=== PATIENT | female | born 1930 | race Caucasian/White ===

== ENCOUNTER 2017-02-28 11:29 | Emergency (ER) | payer OTHER ==
[2017-02-28 11:51] VITALS: RESP 16; TEMP 97.9
--- NOTE | 2017-02-28 12:21 | EDPHY ---
H & P Stated Complaint: rectal area feels "wrong",? BM Itchy Time Seen by Provider: 02/28/17 11:38 HPI/ROS: CHIEF COMPLAINT: Pain in the bottom HISTORY OF PRESENT ILLNESS: This is an 86-year-old female with history of Alzheimer's who presents with her daughter. Patient was noticed to have decreased activity over the last 2 days, with a decreased appetite last night. No vomiting. She told her daughter today that there was burning when she urinated and she told me that she has pain in her bottom. No documented fever. No nausea or vomiting although the patient did not eat well last night. Patient denies any chest pain or shortness of breath to me. She denies any diarrhea. She denies any injury. Her daughter notes that today, when she went to visit her mother, patient was still in bed and did not want to participate in activities at the care facility. No history of fall. REVIEW OF SYSTEMS: Review of systems is unobtainable from this patient because of patient's history of Alzheimer's. Pertinent negatives as above from both the patient as well as the daughter. PAST MEDICAL HISTORY: Alzheimer's dementia. SOCIAL HISTORY: Retired, lives in a care facility. Ambulatory without a walker or supportive devices. VITAL SIGNS Reviewed by me. GENERAL: Elderly female, alert, answers my questions readily. Appears in no distress. Reports that she has pain on her bottom. HEENT: Atraumatic. Eyes: No icterus, no injection. Mouth: Slightly dry mucous membranes. No erythema or lesions. Neck: supple with no adenopathy. LUNGS: Clear to auscultation bilaterally, no wheezes, rhonchi or rales. CARDIAC: Regular rate and rhythm, no rubs, murmurs or gallops. ABDOMEN: Soft, nontender, nondistended, bowel sounds normal. BACK: No CVA tenderness. Erythema is present over the lower sacral area, with no skin breakdown. RECTAL: No hemorrhoids visualized. Perineum grossly normal. EXTREMITIES: No trauma. No edema. Range of motion is normal throughout. NEURO: Alert, able to answer simple questions, grossly nonfocal. SKIN: Warm and dry, no rash. PSYCHIATRIC: No agitation. - Personal History Current Tetanus/Diphtheria Vaccine: Unsure Current Tetanus Diphtheria and Acellular Pertussis (TDAP): Unsure Tetanus Vaccine Date: within 10 years - Medical/Surgical History Hx Asthma: No Hx Chronic Respiratory Disease: No Hx Diabetes: No Hx Cardiac Disease: No Hx Renal Disease: No Hx Cirrhosis: No Hx Alcoholism: No Hx HIV/AIDS: No Hx Splenectomy or Spleen Trauma: No Other PMH: Alzheimers ; htn;. ortho right leg pin - Social History Smoking Status: Never smoked Constitutional: Initial Vital Signs Temperature (C) 36.6 C 02/28/17 11:35 Heart Rate 60 02/28/17 11:35 Respiratory Rate 16 02/28/17 11:35 Blood Pressure 107/61 02/28/17 11:35 O2 Sat (%) 94 02/28/17 11:35 O2 Delivery Mode Room Air Allergies/Adverse Reactions: No Known Allergies Allergy (Verified 02/28/17 11:53) Home Medications: Medication Instructions Recorded Donepezil HCl 12/11/14 Losartan Potassium 04/21/16 Vitamin B6 04/21/16 Cephalexin [Keflex (RX)] 500 mg PO TID 7 Days 02/28/17 Medical Decision Making ED Course/Re-evaluation: Cath urine was ordered. Nurses attempted to obtain a cath urine but there was no urine in the bladder. Patient had IV placed and received a L of normal saline. CBC and chemistries are unremarkable. Cath urine was then obtained. Results are consistent with a urinary tract infection. I discussed this with the patient's daughter. Will place the patient on Keflex 500 mg by mouth 3 times a day. I have also asked the staff at the patient's care facility to keep an eye on the area of erythema on her lower sacrum and upper buttocks to ensure that she is not developing a bedsore. Differential Diagnosis: Differential diagnosis of the patient's complaint was considered including but not limited to urinary tract infection, sacral decubitus, hemorrhoids, rectal bleeding, anal fissures, vaginitis, vaginal discharge. - Data Points Laboratory Results: Laboratory Results 02/28/17 12:49 02/28/17 12:49 02/28/17 02/28/17 02/28/17 14:14 12:49 12:49 WBC 6.18 10^3/uL 10^3/uL (3.80-9.50) RBC 4.32 10^6/uL 10^6/uL (4.18-5.33) Hgb 12.2 g/dL L g/dL (12.6-16.3) Hct 37.8 % L % (38.0-47.0) MCV 87.5 fL fL (81.5-99.8) MCH 28.2 pg pg (27.9-34.1) MCHC 32.3 g/dL L g/dL (32.4-36.7) RDW 13.2 % % (11.5-15.2) Plt Count 212 10^3/uL 10^3/uL (150-400) MPV 9.9 fL fL (8.7-11.7) Neut % (Auto) 58.6 % % (39.3-74.2) Lymph % (Auto) 28.5 % % (15.0-45.0) [place] % (Auto) 9.2 % % (4.5-13.0) Eos % (Auto) 2.8 % % (0.6-7.6) Baso % (Auto) 0.6 % % (0.3-1.7) Nucleat RBC Rel Count 0.0 % % (0.0-0.2) Absolute Neuts (auto) 3.62 10^3/uL 10^3/uL (1.70-6.50) Absolute Lymphs (auto) 1.76 10^3/uL 10^3/uL (1.00-3.00) Absolute Monos (auto) 0.57 10^3/uL 10^3/uL (0.30-0.80) Absolute Eos (auto) 0.17 10^3/uL 10^3/uL (0.03-0.40) Absolute Basos (auto) 0.04 10^3/uL 10^3/uL (0.02-0.10) Absolute Nucleated RBC 0.00 10^3/uL 10^3/uL (0-0.01) Immature Gran % 0.3 % % (0.0-1.1) Immature Gran # 0.02 10^3/uL 10^3/uL (0.00-0.10) Sodium 140 mEq/L mEq/L (134-144) Potassium 4.8 mEq/L mEq/L (3.5-5.2) Chloride 102 mEq/L mEq/L (97-110) Carbon Dioxide 29 mEq/l mEq/l (22-31) Anion Gap 9 mEq/L mEq/L (8-16) BUN 22 mg/dL mg/dL (7-23) Creatinine 0.9 mg/dL mg/dL (0.6-1.0) Estimated GFR 59 Glucose 71 mg/dL mg/dL (70-100) Calcium 8.9 mg/dL mg/dL (8.5-10.4) Total Bilirubin 0.4 mg/dL mg/dL (0.1-1.4) Conjugated Bilirubin 0.1 mg/dL mg/dL (0.0-0.5) Unconjugated Bilirubin 0.3 mg/dL mg/dL (0.0-1.1) AST 21 IU/L IU/L (14-46) ALT 21 IU/L IU/L (9-52) Alkaline Phosphatase 76 IU/L IU/L (38-126) Total Protein 6.5 g/dL g/dL (6.3-8.2) Albumin 3.4 g/dL L g/dL (3.5-5.0) Lipase 174.0 IU/L IU/L (23-300) Urine Color YELLOW Urine Appearance HAZY Urine pH 7.0 (5.0-7.5) Ur Specific [place] 1.015 (1.002-1.030) Urine Protein NEGATIVE (NEGATIVE) Urine Ketones TRACE H (NEGATIVE) Urine Blood TRACE H (NEGATIVE) Urine Nitrate POSITIVE H (NEGATIVE) Urine Bilirubin NEGATIVE (NEGATIVE) Urine Urobilinogen 0.2 EU EU (0.2-1.0) Ur Leukocyte Esterase TRACE H (NEGATIVE) Urine RBC 5-10 /hpf H /hpf (0-3) Urine WBC 25-50 /hpf H /hpf (0-3) Ur Epithelial Cells TRACE /lpf /lpf (NONE-1+) Sodium Urate Crystals PRESENT /hpf /hpf (NONE-1+) Urine Bacteria 3+ /hpf H /hpf (NONE SEEN) Urine Mucus 1+ /lpf /lpf (NONE-1+) Urine Glucose NEGATIVE (NEGATIVE) Medications Given: Discontinued Medications Sodium Chloride (Ns) 1,000 mls @ 0 mls/hr IV ONCE ONE PRN Reason: Wide Open Stop: 02/28/17 12:37 Last Admin: 02/28/17 13:00 Dose: 1,000 mls Sodium Chloride (Ns) 1,000 mls @ 0 mls/hr IV ONCE ONE PRN Reason: Wide Open Stop: 02/28/17 12:41 Last Admin: 02/28/17 14:27 Dose: Not Given Departure - Departure Disposition: Home, Routine, Self-Care Clinical Impression: Urinary tract infection Qualifiers: Urinary tract infection type: site unspecified Hematuria presence: without hematuria Qualified Code(s): N39.0 - Urinary tract infection, site not specified Condition: Good Instructions: Urinary Traction Infection in Older Adults (ED) Additional Instructions: Please take antibiotic as directed. Keflex 500 mg by mouth 3 times a day for 7 days. Please encourage plenty of fluids and plenty of rest. There is a area of redness on the lower sacrum. Please ask the staff at patient 's care facility to make sure she is up and ambulatory when possible and to make sure she does not develop a bed sore in that area. Follow up with her primary care physician next week if you continue to have any concerns regarding her fatigue and lack of appetite. Be seen urgently if she develops a fever, vomiting, diarrhea, continues to complain of pain, blood in the stools, or other concerns. Referrals: Daisy Calvo MD [Primary Care Provider] - As per Instructions Prescriptions: Cephalexin [Keflex (RX)] 500 mg PO TID 7 Days
[2017-02-28] MEDS ORDERED: NS 1,000 ML IV ONE ×2 (12:36→12:40)
[2017-02-28 12:52] LABS: % IMMATURE GRANULYOCYTES 0.3 % (0.0-1.1); ABSOLUTE IMMATURE GRANULOCYTES 0.02 10^3/uL (0.00-0.10); ADD DIFF? NO; ADD MORPH? NO; ADD SCAN? NO; ATYPICAL LYMPHOCYTE FLAG 20 (0-99); FRAGMENT RBC FLAG 0 (0-99); HEMATOCRIT 37.8 % (38.0-47.0); HEMOGLOBIN 12.2 g/dL (12.6-16.3); LEFT SHIFT FLG 0 (0-99); LIPEMIA HEMOLYSIS FLAG 80 (0-99); MEAN CELL HEMOGLOBIN 28.2 pg (27.9-34.1); MEAN CELL HEMOGLOBIN CONCENTR. 32.3 g/dL (32.4-36.7); MEAN CELL VOLUME 87.5 fL (81.5-99.8); MEAN PLATELET VOLUME 9.9 fL (8.7-11.7); PLATELET CLUMPS FLAG 0 (0-99); PLATELET COUNT 212 10^3/uL (150-400); RED BLOOD CELL COUNT 4.32 10^6/uL (4.18-5.33); RED CELL DISTRIBUTION WIDTH 13.2 % (11.5-15.2)
[2017-02-28 13:14] LABS: ALBUMIN 3.4 g/dL (3.5-5.0); BILIRUBIN,TOTAL 0.4 mg/dL (0.1-1.4); BILIRUBIN-CONJUGATED 0.1 mg/dL (0.0-0.5); BILIRUBIN-UNCONJUGATED 0.3 mg/dL (0.0-1.1); CALCIUM 8.9 mg/dL (8.5-10.4); CREATININE 0.9 mg/dL (0.6-1.0); POTASSIUM 4.8 mEq/L (3.5-5.2); TOTAL PROTEIN 6.5 g/dL (6.3-8.2)
[2017-02-28 14:19] LABS: COLOR YELLOW; LEUKOCYTE ESTERASE,URINE TRACE (NEGATIVE); NITRITE,URINE POSITIVE (NEGATIVE)
[2017-02-28 14:28] LABS: BACTERIA 3+ /hpf (NONE SEEN); MUCUS 1+ /lpf (NONE-1+)
[2017-02-28 14:30] LABS: SODIUM URATE CRYSTAL PRESENT /hpf (NONE-1+); WBC,URINE 25-50 /hpf (0-3)
[2017-02-28 14:46] VITALS: BP 129/69; PULSE 65; O2SAT 96
== END 2017-02-28 14:50 | disposition home or self-care (01) ==
LOC: CED 11:29
DX: N39.0 Urinary tract infection, site not specified (principal); B96.20 Unspecified Escherichia coli [E. coli] as the cause of diseases classified elsewhere; G30.9 Alzheimer's disease, unspecified; I10 Essential (primary) hypertension
CPT/HCPCS: 80048-PO; 80076-PO; 81003-PO; 81015-PO; 83690-PO; 85025-PO

== ENCOUNTER 2017-05-07 16:25 | Emergency (ER) | payer OTHER ==
[2017-05-07 16:49] VITALS: TEMP 97.9; O2SAT 94
--- NOTE | 2017-05-07 16:52 | EDPHY ---
H & P Time Seen by Provider: 05/07/17 16:31 HPI/ROS: This patient complains of left leg pain. She is accompanied by her daughter. The patient has a history of Alzheimer's in this in an Alzheimer's Care unit facility though she still pretty high functioning at this point. As recently as Saturday, 2 days prior to arrival the patient was walking normally. However when the daughter visit her today she is holding on to chairs to ambulate complaining of her left leg pain. The staff at the facility where she lives mention that she has had about 2 days of leg pain the been giving her Tylenol partial relief. She had a dose of Tylenol 975 mg 3:00 p.m. again with partial relief. ROS: No fevers or chills. No other constitutional symptoms HEENT: No complaints Pulmonary: No pleuritic pain or shortness of breath Musculoskeletal: Patient's daughter reports that during some activities today the patient reached for her back but she now denies any back pain or hip pain. Cardiovascular: No chest pain or lightheadedness. No lower extremity swelling GI: No complaints Integumentary: No skin changes to the affected leg 7 point ROS is otherwise negative Past Medical/Surgical History: No prior history of DVTs or PEs. No family history of DVT or PE Social History: No recent immobilization Smoking Status: Never smoked Physical Exam: Physical Exam Vital signs are normal. General: Pleasant elderly female No acute distress HEENT: Atraumatic. Eyes: Pupils equal and react to light. Extraocular motions are intact. Lungs: No respiratory distress. Cardiac: Brisk capillary refill is intact throughout. Pulses are 2+ and symmetric in the affected extremity. Skin: No rash or pallor. Extremities: Atraumatic normal except for left leg Left leg: Patient has mild lateral tenderness to the leg. Minimal posterior tenderness. Homans is negative. She is neurovascularly intact in the affected extremity. No knee tenderness, or hip tenderness on the affected side also no thigh tenderness. Back: Patient has no midline tenderness and no tenderness the sciatic notch on the left or in the left lumbar paraspinous region. Neuro: Alert and oriented x3 with no sensorimotor deficits. Initial differential diagnosis: Muscle strain, pathologic fracture of the fibula, DVT, muscle cramps Constitutional: Initial Vital Signs Temperature (C) 36.6 C 05/07/17 16:40 Heart Rate 72 05/07/17 16:40 Respiratory Rate 16 05/07/17 16:40 Blood Pressure 107/56 L 05/07/17 16:40 O2 Sat (%) 94 05/07/17 16:40 O2 Delivery Mode Room Air Allergies/Adverse Reactions: No Known Allergies Allergy (Verified 05/07/17 16:43) Home Medications: Medication Instructions Recorded Donepezil HCl 12/11/14 Losartan Potassium 04/21/16 Vitamin B6 04/21/16 MDM/Departure - MDM Diagnostics: Tib-fib x-ray normal by my interpretation Imaging Results: Imaging Impressions Tibia/Fibula X-Ray 05/07/17 16:47 Impression: No source for lateral pain identified in this osteoporotic patient. Imaging: I viewed and interpreted images myself ED Course/Re-evaluation: CBC, basic metabolic panel are normal and D-dimer is also on normal/negative Course: After reviewing her normal x-ray and labs assisted the patient to standing position and she walked without difficulty. Her daughter surprised by this. However I did remind her that she had Tylenol shortly before coming urinate may be effective for muscle strain or other minor in element that may be causing pain. After workup, I find no evidence of bony injury, DVT cellulitis or other significant abnormalities the left lower extremity. Also find no evidence of significant back pathology, sciatica or other. - Depart Disposition: Home, Routine, Self-Care Clinical Impression: Leg pain, left Condition: Good Instructions: Leg Pain (ED) Additional Instructions: Diagnosis: Leg pain Her leg x-ray is normal today. Her blood count, basic metabolic panel and D- dimer are also normal. We see no bony cause of pain and we have effectively ruled out a blood clot today. She may have a muscle strain Plan: Tylenol as needed for pain Cane if needed Follow up with primary care physician for any ongoing symptoms. Return for any significant worsening despite the treatment plan. Referrals: Daisy Calvo MD [Primary Care Provider] - As per Instructions
[2017-05-07 16:58] LABS: % IMMATURE GRANULYOCYTES 0.3 % (0.0-1.1); ABSOLUTE IMMATURE GRANULOCYTES 0.02 10^3/uL (0.00-0.10); ADD DIFF? NO; ADD MORPH? NO; ADD SCAN? NO; ATYPICAL LYMPHOCYTE FLAG 30 (0-99); FRAGMENT RBC FLAG 0 (0-99); HEMATOCRIT 36.9 % (38.0-47.0); HEMOGLOBIN 11.8 g/dL (12.6-16.3); LEFT SHIFT FLG 0 (0-99); LIPEMIA HEMOLYSIS FLAG 80 (0-99); MEAN CELL HEMOGLOBIN 27.8 pg (27.9-34.1); MEAN PLATELET VOLUME 10.3 fL (8.7-11.7); PLATELET CLUMPS FLAG 10 (0-99); PLATELET COUNT 239 10^3/uL (150-400); RED BLOOD CELL COUNT 4.24 10^6/uL (4.18-5.33)
[2017-05-07 17:16] LABS: POTASSIUM 4.5 mEq/L (3.5-5.2)
[2017-05-07 17:44] VITALS: BP 100/82; PULSE 62; RESP 18
== END 2017-05-07 17:42 | disposition home or self-care (01) ==
LOC: CED 16:25
DX: M79.605 Pain in left leg (principal)
CPT/HCPCS: 73590-PO; 80048-PO; 85025-PO; 85378-PO

== ENCOUNTER 2018-02-05 20:17 | Inpatient (IN) | payer OTHER ==
[2018-02-05] MEDS ORDERED: NS 500 ML IV ONE (21:12)
--- NOTE | 2018-02-05 21:16 | EDPHY ---
H & P Time Seen by Provider: 02/05/18 21:06 HPI/ROS: CHIEF COMPLAINT: Cough HISTORY OF PRESENT ILLNESS: Patient is an 87-year-old female presents to the emergency department with worsening cough. The patient was seen on Saturday and diagnosed with influenza a at urgent care. She was started on Tamiflu. Her daughter Star yesterday and, although she seemed fatigue, she was doing okay. This morning the daughter arrived and found the patient with increased cough. Staff told her that the patient was coughing up brown colored sputum. Patient has had increasing work of breathing. No reported fever or chills. No nausea or vomiting. No abdominal pain. Patient has a history of Alzheimer's disease which the daughter states is"moderate." REVIEW OF SYSTEMS: My complete review of systems is negative except as mentioned in the HPI. Past Medical/Surgical History: Includes Alzheimer's, hypertension Past surgical history: Noncontributory Social history: Patient does not smoke Smoking Status: Never smoked Physical Exam: 37.1, 124/82, 86, 16, 89% on room air. Repeat oxygen saturation is 94% GENERAL: No acute distress, alert. Fatigued appearing HEENT: Eyes normal to inspection, normal pharynx, no signs of dehydration. NECK: No thyromegaly, no lymphadenopathy, supple. RESPIRATORY: Bilateral rales. This is diffuse. No rhonchi or wheezing. CVS: Regular rate and rhythm, no rubs, murmurs, or gallops. ABDOMEN: Soft, nontender, nondistended, no organomegaly. BACK: Normal to inspection, no CVA tenderness. SKIN: Normal color, no rash, warm, dry. No pallor. EXTREMITIES: No pedal edema, no calf tenderness, no Homans sign or cords, no joint swelling. NEURO/PSYCH: Alert and oriented, normal mood and affect, normal motor sensory exam. Constitutional: Initial Vital Signs Temperature (C) 37.1 C 02/05/18 20:19 Heart Rate 86 02/05/18 20: Respiratory Rate 16 02/05/18 20: Blood Pressure 124/82 H 02/05/18 20: O2 Sat (%) 89 L 02/05/18 20: O2 Delivery Mode Room Air O2 (L/minute) 2 Allergies/Adverse Reactions: No Known Allergies Allergy (Verified 05/07/17 16:43) Home Medications: Medication Instructions Recorded Donepezil HCl 12/11/14 Losartan Potassium 04/21/16 Vitamin B6 04/21/16 Mucinex 02/05/18 Tamiflu 75 mg (*) 02/05/18 Medical Decision Making - Diagnostics Imaging Results: Imaging Impressions Chest X-Ray 02/05/18 21:12 Impression: 1. Bilateral airspace thickening is increased, which may be infectious or field representative/health education of progressive/exacerbated COPD. 2. Right hemidiaphragm elevation ED Course/Re-evaluation: In the emergency department I discussed the plan with the patient and her daughter. I answered all her questions. IV was placed. Laboratory studies, EKG and chest x-ray were ordered. The patient's CBC was unremarkable. Normal white count. Patient's lactate was normal. Chemistry panel was notable for slightly low sodium. Chest x-ray: Please refer the dictated report. I reviewed the images with the radiologist. The patient states this is consistent with COPD exacerbation. No focal infiltrate. I discussed the results with the patient and her daughter. I answered all her questions. Patient will be admitted for further observation due to her diagnosis of influenza a and hypoxia. I discussed case with Dr. Pierre. He will admit the patient. Differential Diagnosis: My differential includes but is not limited to influenza a, pneumonia, empyema, bronchitis, bacteremia, sepsis - Data Points Laboratory Results: Laboratory Results 02/05/18 21:20 02/05/18 21:20 02/05/18 02/05/18 02/05/18 21:20 21:20 21:20 WBC RBC Hgb Hct MCV MCH MCHC RDW Plt Count MPV Neut % (Auto) Lymph % (Auto) [place] % (Auto) Eos % (Auto) Baso % (Auto) Nucleat RBC Rel Count Absolute Neuts (auto) Absolute Lymphs (auto) Absolute Monos (auto) Absolute Eos (auto) Absolute Basos (auto) Absolute Nucleated RBC Immature Gran % Immature Gran # APTT VBG Lactic Acid 0.9 mmol/L mmol/L (0.7-2.1) Sodium 134 mEq/L L mEq/L (135-145) Potassium 4.2 mEq/L mEq/L (3.5-5.2) Chloride 100 mEq/L mEq/L (97-110) Carbon Dioxide 27 mEq/l mEq/l (22-31) Anion Gap 7 mEq/L L mEq/L (8-16) BUN 19 mg/dL mg/dL (7-23) Creatinine 1.0 mg/dL mg/dL (0.6-1.0) Estimated GFR 52 Glucose 101 mg/dL H mg/dL (70-100) Calcium 8.6 mg/dL mg/dL (8.5-10.4) Troponin I < 0.012 ng/mL ng/mL (0.000-0.034) NT-Pro-B Natriuret Pep 290 pg/mL pg/mL (0-450) Procalcitonin Pending 02/05/18 02/05/18 21:20 21:20 WBC 5.39 10^3/uL 10^3/uL (3.80-9.50) RBC 4.59 10^6/uL 10^6/uL (4.18-5.33) Hgb 12.6 g/dL g/dL (12.6-16.3) Hct 38.5 % % (38.0-47.0) MCV 83.9 fL fL (81.5-99.8) MCH 27.5 pg L pg (27.9-34.1) MCHC 32.7 g/dL g/dL (32.4-36.7) RDW 14.1 % % (11.5-15.2) Plt Count 202 10^3/uL 10^3/uL (150-400) MPV 10.8 fL fL (8.7-11.7) Neut % (Auto) 51.7 % % (39.3-74.2) Lymph % (Auto) 32.3 % % (15.0-45.0) [place] % (Auto) 15.4 % H % (4.5-13.0) Eos % (Auto) 0.2 % L % (0.6-7.6) Baso % (Auto) 0.2 % L % (0.3-1.7) Nucleat RBC Rel Count 0.0 % % (0.0-0.2) Absolute Neuts (auto) 2.79 10^3/uL 10^3/uL (1.70-6.50) Absolute Lymphs (auto) 1.74 10^3/uL 10^3/uL (1.00-3.00) Absolute Monos (auto) 0.83 10^3/uL H 10^3/uL (0.30-0.80) Absolute Eos (auto) 0.01 10^3/uL L 10^3/uL (0.03-0.40) Absolute Basos (auto) 0.01 10^3/uL L 10^3/uL (0.02-0.10) Absolute Nucleated RBC 0.00 10^3/uL 10^3/uL (0-0.01) Immature Gran % 0.2 % % (0.0-1.1) Immature Gran # 0.01 10^3/uL 10^3/uL (0.00-0.10) APTT 36.2 SEC SEC (23.0-38.0) VBG Lactic Acid Sodium Potassium Chloride Carbon Dioxide Anion Gap BUN Creatinine Estimated GFR Glucose Calcium Troponin I NT-Pro-B Natriuret Pep Procalcitonin Medications Given: Discontinued Medications Sodium Chloride (Ns) 500 mls @ 1,000 mls/hr IV EDNOW ONE PRN Reason: Protocol Stop: 02/05/18 21:41 Last Admin: 02/05/18 21:39 Dose: 500 mls Departure - Departure Disposition: [facility] Clinical Impression: Hypoxia, Influenza A Condition: Good
[2018-02-05 21:38] LABS: PLATELET COUNT 202 10^3/uL (150-400)
[2018-02-05] MEDS ORDERED: ALBUTEROL 3 ML DEYVIAL IH PRN (22:22)
[2018-02-05] MEDS ORDERED: ONDANSETRON 4 MG/2 ML VIAL IVP PRN (22:22)
[2018-02-05] MEDS ORDERED: ONDANSETRON DISINTEGRATING 4 MG TAB PO PRN (22:22)
[2018-02-05] MEDS ORDERED: ACETAMINOPHEN 325 MG TAB PO PRN (22:22)
--- NOTE | 2018-02-05 23:31 | PDGENHP ---
History and Physical - Chief Complaint Cough - History of Present Illness 87 yo F w/ HTN brought to ED for cough. Patient was diagnosed with influenza last Saturday. Over the last day her sputum turned from white to brown, per family. She has had no other change in her symptoms (cough, fatigue). In the ED her work-up is relatively unremarkable except for O2 sat of 88% on room air. When asked from complaints, patient just says "I don't feel great." Family would like to avoid prednisone due to side effects. History Information - Allergies/Home Medication List Allergies/Adverse Reactions: No Known Allergies Allergy (Verified 05/07/17 16:43) Home Medications: Donepezil HCl 12/11/14 [Last Taken Unknown] Losartan Potassium 04/21/16 [Last Taken Unknown] Vitamin B6 04/21/16 [Last Taken Unknown] Mucinex 02/05/18 [Last Taken Unknown] Tamiflu 75 mg (*) 02/05/18 [Last Taken Unknown] I have personally reviewed and updated: family history, medical history - Past Medical History hypertension - Family History Positive for: cancer - Social History Smoking Status: Never smoked Review of Systems Review of Systems: ROS: 10pt was reviewed & negative except for what was stated in HPI & below Physical Exam Physical Exam: Temp Pulse Resp BP Pulse Ox 36.9 C 75 18 131/63 H 97 02/05/18 22:00 02/05/18 22:00 02/05/18 22:00 02/05/18 22:00 02/05/18 22:00 Constitutional: no apparent distress, uncomfortable Eyes: PERRL, EOMI Ears, Nose, Mouth, Throat: moist mucous membranes, no oral mucosal ulcers Cardiovascular: regular rate and rhythym, systolic murmur Respiratory: no respiratory distress, expiratory wheeze (Mild, central airways) Gastrointestinal: normoactive bowel sounds, soft, non-tender abdomen Skin: warm, normal color Musculoskeletal: full muscle strength, no muscle tenderness Neurologic: AAOx3, CN II-XII Intact Psychiatric: interacting appropriately, not anxious Lab Data & Imaging Review 02/05/18 21:20 02/05/18 21:20 WBC 5.39 10^3/uL (3.80-9.50) 02/05/18 21:20 RBC 4.59 10^6/uL (4.18-5.33) 02/05/18 21:20 Hgb 12.6 g/dL (12.6-16.3) 02/05/18 21:20 Hct 38.5 % (38.0-47.0) 02/05/18 21:20 MCV 83.9 fL (81.5-99.8) 02/05/18 21:20 MCH 27.5 pg (27.9-34.1) L 02/05/18 21:20 MCHC 32.7 g/dL (32.4-36.7) 02/05/18 21:20 RDW 14.1 % (11.5-15.2) 02/05/18 21:20 Plt Count 202 10^3/uL (150-400) 02/05/18 21:20 MPV 10.8 fL (8.7-11.7) 02/05/18 21:20 Neut % (Auto) 51.7 % (39.3-74.2) 02/05/18 21:20 Lymph % (Auto) 32.3 % (15.0-45.0) 02/05/18 21:20 [place] % (Auto) 15.4 % (4.5-13.0) H 02/05/18 21:20 Eos % (Auto) 0.2 % (0.6-7.6) L 02/05/18 21:20 Baso % (Auto) 0.2 % (0.3-1.7) L 02/05/18 21:20 Nucleat RBC Rel Count 0.0 % (0.0-0.2) 02/05/18 21:20 Absolute Neuts (auto) 2.79 10^3/uL (1.70-6.50) 02/05/18 21:20 Absolute Lymphs (auto) 1.74 10^3/uL (1.00-3.00) 02/05/18 21:20 Absolute Monos (auto) 0.83 10^3/uL (0.30-0.80) H 02/05/18 21:20 Absolute Eos (auto) 0.01 10^3/uL (0.03-0.40) L 02/05/18 21:20 Absolute Basos (auto) 0.01 10^3/uL (0.02-0.10) L 02/05/18 21:20 Absolute Nucleated RBC 0.00 10^3/uL (0-0.01) 02/05/18 21:20 Immature Gran % 0.2 % (0.0-1.1) 02/05/18 21:20 Immature Gran # 0.01 10^3/uL (0.00-0.10) 02/05/18 21:20 APTT 36.2 SEC (23.0-38.0) 02/05/18 21:20 VBG Lactic Acid 0.9 mmol/L (0.7-2.1) 02/05/18 21:20 Sodium 134 mEq/L (135-145) L 02/05/18 21:20 Potassium 4.2 mEq/L (3.5-5.2) 02/05/18 21:20 Chloride 100 mEq/L (97-110) 02/05/18 21:20 Carbon Dioxide 27 mEq/l (22-31) 02/05/18 21:20 Anion Gap 7 mEq/L (8-16) L 02/05/18 21:20 BUN 19 mg/dL (7-23) 02/05/18 21:20 Creatinine 1.0 mg/dL (0.6-1.0) 02/05/18 21:20 Estimated GFR 52 02/05/18 21:20 Glucose 101 mg/dL (70-100) H 02/05/18 21:20 Calcium 8.6 mg/dL (8.5-10.4) 02/05/18 21:20 Troponin I < 0.012 ng/mL (0.000-0.034) 02/05/18 21:20 NT-Pro-B Natriuret Pep 290 pg/mL (0-450) 02/05/18 21:20 Procalcitonin 0.15 ng/mL (0.02-0.10) H 02/05/18 21:20 Imaging Review: Imaging Impressions Chest X-Ray 02/05/18 21:12 Impression: 1. Bilateral airspace thickening is increased, which may be infectious or authorization representative of progressive/exacerbated COPD. 2. Right hemidiaphragm elevation Assessment & Plan Assessment: 87 yo F w/ HTN presents with hypoxia 2/2 likely RAD exacerbation from flu. Plan: 1. AHRF 2/2 RAD exacerbation from influenza - I suspect patient has a mild reactive airway exacerbation noting wheezing on exam. She was diagnosed with influenza last Saturday and has failed to improve significantly despite Tamiflu. She is currently requiring 2 L/min O2 to maintain O2 sats >90%. Afebrile with normal WBC. - Patient's family refusing prednisone 2/2 side effects, would revisit this if not improving - Albuterol PRN - Wean O2 as able 2. Influenza - Diagnosed on 02/02. Will continue Tamiflu for 1 more day to finish 5 day course. 3. HTN - Continue home medications Diet - Regular Code - Full Ppx - LMWH, low dose Dispo - Admit under observation status
[2018-02-06 05:02] LABS: PLATELET COUNT 195 10^3/uL (150-400)
[2018-02-06] MEDS ORDERED: OSELTAMIVIR PHOSPHATE 75 MG CAP PO SCH ×3 (08:00→18:00)
[2018-02-06] MEDS: ENOXAPARIN 30 MG/0.3 ML SYR SC SCH (10:17)
[2018-02-06] MEDS ORDERED: LOSARTAN POTASSIUM 50 MG TAB PO SCH (11:45)
--- NOTE | 2018-02-06 12:07 | HOSPPROG ---
Hospitalist Progress Note Assessment/Plan: 87 yo F w/ HTN presents with hypoxia 2/2 likely RAD exacerbation from flu. 1st encounter, chart reviewed. Plan: 1. AHRF 2/2 RAD exacerbation from influenza - - patient has a mild reactive airway exacerbation noting wheezing on exam. - She was diagnosed with influenza last Saturday and has failed to improve significantly despite Tamiflu. - She is currently requiring 2 L/min O2 to maintain O2 sats >90%. - Afebrile with normal WBC. - Patient's family refusing prednisone 2/2 side effects, pt would likely benefit from prednisone - Albuterol PRN - Wean O2 as able 2. Influenza - -Diagnosed on 02/02. -Will continue Tamiflu for 1 more day to finish 5 day course. 3. HTN - - Continue home medications Diet - Regular Code - Full Ppx - LMWH, low dose Dispo - Change to inpt status -conts to require Oxygen -conts to wheeze Subjective: No verbal interaction. No issues. Objective: Vital Signs Temp Pulse Resp BP Pulse Ox 36.7 C 64 18 129/90 H 95 02/06/18 11:14 02/06/18 11:14 02/06/18 11:14 02/06/18 11:14 02/06/18 11:14 Laboratory Results 02/06/18 04:20 02/06/18 04:20 02/05/18 02/06/18 02/07/18 05:59 05:59 05:59 Intake Total 500 Balance 500 - Physical Exam Constitutional: not in pain, chronically ill appearing, cachectic Eyes: PERRL, anicteric sclera, EOMI Ears, Nose, Mouth, Throat: moist mucous membranes, hearing normal, ears appear normal Cardiovascular: regular rate and rhythym, No JVD, No edema Respiratory: no respiratory distress, reduced air movement, expiratory wheeze Gastrointestinal: normoactive bowel sounds, No tenderness, No ascites Skin: warm, normal color, No mottled Musculoskeletal: normal joint ROM, no joint effusions, generalized weakness Neurologic: No AAOx3 Psychiatric: not anxious, poor insight, poor judgement, poor memory ICD10 Worksheet Patient Problems: Problems Problem Status Onset Hypoxia Acute Influenza A Acute
--- NOTE | 2018-02-06 14:55 | ASMTCMCOM ---
CM Note CM Note Notes: Pt admitted w/hypoxia most likely secondary to influenza which she was diagnosed w/last saturday, has hx of dementia.Reviewed chart and discussed w/RN. Pt lives at [facility] per RN; have call out to amandeep at [facility] to determine if their facility. Awaiting PT/OT rec's to help determine dc plan. CM will follow. Date Signed: 02/06/2018 02:54 PM Electronically Signed By:Shira Tirado RN
--- NOTE | 2018-02-06 15:21 | ASMTCMCOM ---
CM Note CM Note Notes: Reviewed chart, discussed w/RN. 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 PT recommending home. Anticipate dc home w/, no CM needs when medically ready. Date Signed: 02/06/2018 03:20 PM Electronically Signed By:Shira Tirado RN
--- NOTE | 2018-02-06 15:31 | ASMTCMCOM ---
CM Note CM Note Notes: Please disregard last case management note entered at 15:20. This note was meant for different pt. Date Signed: 02/06/2018 03:30 PM Electronically Signed By:Shira Tirado RN
[2018-02-06] MEDS: predniSONE 20 MG TAB PO SCH (17:41)
[2018-02-06] MEDS ORDERED: OSELTAMIVIR 6 MG/ML UDSYR PO SCH (18:00)
--- NOTE | 2018-02-06 18:06 | PDMN ---
Medical Necessity Medical necessity: Change to IP, as of 02/06/18, per [employer]; los >2 mn for ongoing management of acute hypoxemic respiratory failure secondary to reactive airway exacerbation & influenza; admit for further monitoring, supportive care & therapies; comorbid advanced age & HTN; per progress note & order 02/06/18
[2018-02-06] MEDS ORDERED: MELATONIN 10 MG PO SCH (21:00)
[2018-02-06] MEDS: DONEPEZIL 10 MG TAB PO SCH ×2 (21:00→22:18)
[2018-02-06] MEDS ORDERED: MELATONIN 3 MG TAB PO SCH (21:00)
[2018-02-06] MEDS ORDERED: DONEPEZIL HCL 5 MG TAB PO SCH (21:00)
[2018-02-07] MEDS: predniSONE 20 MG TAB PO SCH (08:23)
[2018-02-07] MEDS: ENOXAPARIN 30 MG/0.3 ML SYR SC SCH (08:24)
[2018-02-07] MEDS ORDERED: LOSARTAN POTASSIUM 50 MG TAB PO SCH (09:00)
[2018-02-07] MEDS ORDERED: CYANO/VITAMIN B12 1000 MCG TAB PO SCH (09:00)
--- NOTE | 2018-02-07 12:07 | HOSPPROG ---
Hospitalist Progress Note Assessment/Plan: 87 yo F with dementia as well as recent dx of influenza admitted with increased sob/wheeze # acute hypoxic respiratory failure: in the setting of influenza and presumed RAD versus COPD exacerbation related to same. Weaning as able. Today maintaining o2 sats > 90 on RA even with ambulation. # RAD vs copd with acute exacerbation: in setting of influenza and personal review of cxr showing airspace thickening c/w copd. Improved with breathing treatments and no longer wheezing. # influenza: diagnosed on 02/02 and completing course of tamiflu today # dementia: relatively advanced, recommendation by pt/ot for transition to memory care unit which daughter also agrees would be beneficial # htn: continue losartan, well controlled # dispo: IP status, likely can return to prior living situation today Patient new to my care. Old records reviewed and summarized as above. Care plan reviewed with CM. Further hx obtained from patient's daughter present at bedside. Subjective: no significant overnight events, patient has been walking independently, coughing but no longer dark appearing sputum, remains minimally verbally interactive but when asked if she wants to go home she says "oh yes" Objective: Vital Signs Temp Pulse Resp BP Pulse Ox 36.8 C 63 12 139/65 H 93 02/06/18 23:25 02/07/18 07:52 02/07/18 07:52 02/07/18 08:22 02/07/18 09:00 Laboratory Results 02/06/18 04:20 02/06/18 04:20 02/06/18 02/07/18 02/08/18 05:59 05:59 05:59 Intake Total 500 Balance 500 awake alert minimally verbally interactive anicteric mmm rrr no mrg cta with scant wheeze soft nt nd no cce warm dry well perfused strength intact, gait normal, minimal verbal interaction ICD10 Worksheet Patient Problems: Problems Problem Status Onset Hypoxia Acute Influenza A Acute
[2018-02-07 12:55] VITALS: BP 153/100
--- NOTE | 2018-02-07 12:55 | PDIAF ---
- Diagnosis Code Status: Full Code - Medication Management Discharge Medications: Medications to Continue on Transfer Donepezil HCl [Aricept 5 MG (*)] 10 mg PO HS 12/11/14 [Last Taken 02/05/18] Cyanocobalamin [Vitamin B12 (*)] 1,000 mcg PO DAILY 04/21/16 [Last Taken Unknown ] Losartan Potassium [Cozaar 50 mg (*)] 50 mg PO DAILY 04/21/16 [Last Taken ] Melatonin 10 mg PO HS 02/06/18 [Last Taken Unknown] Acetaminophen [Tylenol 325mg (*)] 650 mg PO Q4HRS PRN tab 02/07/18 [Last Taken Unknown] Albuterol Sulfate [Ventolin Hfa] 8 gm IH Q2H PRN #1 [email or web address] 02/07/18 [Last Taken Unknown] Discharge Medications: Refer to the Discharge Home Medication list for PRN reason. - Orders Services needed: Registered Nurse, Certified Wash Helper, Physical Therapy, Occupational Therapy Isolation Type: Droplet Isolation Additional Instructions: Check SP O2 BID until follow up with PCP. - Follow Up Care Current Providers and Referrals: Daisy Calvo MD [Primary Care Provider] - As per Instructions
--- NOTE | 2018-02-07 12:55 | PDDCSUM ---
Discharge Summary Discharge Summary: Dates of service 02/05-02/07/18 Consultations: none Procedures: none Hospital course by problem: 87 yo F with dementia as well as recent dx of influenza admitted with increased sob/wheeze # acute hypoxic respiratory failure: in the setting of influenza and presumed RAD versus COPD exacerbation related to same. Weaned off of oxygen successfully. # RAD vs copd with acute exacerbation: in setting of influenza and personal review of cxr showing airspace thickening c/w copd. Improved with breathing treatments and no longer wheezing. # influenza: diagnosed on 02/02 and completed course of tamiflu # dementia: relatively advanced, recommendation by pt/ot for transition to memory care unit which daughter also agrees would be beneficial # htn: continue losartan, well controlled Dc home f/u with PCP Items for follow up: -consideration for transition to memory care unit -monitoring of respiratory status, suspect underlying RAD/COPD > 35 min spent in dc of patient more than half in coordination of care
--- NOTE | 2018-02-07 14:12 | ASMTCMCOM ---
CM Note CM Note Notes: PT/OT recommending that pt return to [facility] and have HHC and consider transitioning in near futre to facility w/memory care. Pt lives at [facility]. Spoke w/RICK Carter at this facility who said they are fine to accept pt back today as long as she can be there by 2:30. Met w/pt and daughter Dee Dee who is comfortable with her dc'ing back to [facility] today and would like [facility]. [facility] is able to accept per Elisha..Daughter did express interest in memory care and will consider moving her mom in near future if needed. Emma at [facility] said that they would be able to check in on pt q 1hr. Referrals sent to both [facility] and [facility]. Discussed w/Dr Davila and RN. Date Signed: 02/07/2018 02:11 PM Electronically Signed By:Shira Tirado RN
--- NOTE | 2018-02-07 16:18 | ASDISCHSUM ---
Discharge Information Plan Status:Assisted Living Medically Cleared to Leave: Discharge Date:02/07/2018 02:08 PM D/C Disposition:Assisted Living ADT D/C Disposition:Home Health Service Projected Discharge Date:02/07/2018 11:00 AM Transportation at D/C:Family Discharge Delay Reason: Follow-Up Date:02/07/2018 11:00 AM Discharge Slot: Final Diagnosis: Placement Information Referral Type:Assisted Living Residence Referral ID:[id number] Provider Name:[facility] Address 1:[address] Phone Number: Address 2: Fax Number: [facility] Selection Factors: State:[place] Referral Type:*Home Health Care Services Referral ID:[id number] Provider Name:[facility] (formerly [facility]) [address] 2: City:[place] Selection Factors: State:[place] Patient Contact Information Contact Name:ENRICO Relationship:Daughter Address:[address] [place] [address] Work Phone: [facility]:[place] Alternate Phone: [facility]/Zip Code:[place] [address] Email: Financial Information Financial Class:Medicare Primary Plan Desc:MEDICARE INPATIENT Primary Plan Number:[id number] Secondary Plan Desc: Secondary Plan Number: Assessment Information [facility] CM Progress Note CM Note CM Note Notes: Pt admitted w/hypoxia most likely secondary to influenza which she was diagnosed w/last saturday, has hx of dementia.Reviewed chart and discussed w/RN. Pt lives at [facility] per RN; have call out to amandeep at [facility] to determine if their facility. Awaiting PT/OT rec's to help determine dc plan. CM will follow. Date Signed: 02/06/2018 02:54 PM Electronically Signed By:Shira Tirado RN [facility] CM Progress Note CM Note CM Note Notes: Reviewed chart, discussed w/RN. 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 PT recommending home. Anticipate dc home w/, no CM needs when medically ready. Date Signed: 02/06/2018 03:20 PM Electronically Signed By:Shira Tirado RN [facility] CM Progress Note CM Note CM Note Notes: Please disregard last case management note entered at 15:20. This note was meant for different pt. Date Signed: 02/06/2018 03:30 PM Electronically Signed By:Shira Tirado RN [facility] CM Progress Note CM Note CM Note Notes: PT/OT recommending that pt return to [facility] and have HHC and consider transitioning in near futre to facility w/memory care. Pt lives at [facility] at [facility]. Spoke w/RICK Carter at this facility who said they are fine to accept pt back today as long as she can be there by 2:30. Met w/pt and daughter Dee Dee who is comfortable with her dc'ing back to [facility] today and would like [facility]. [facility] is able to accept per Elisha..Daughter did express interest in memory care and will consider moving her mom in near future if needed. Emma at [facility] said that they would be able to check in on pt q 1hr. Referrals sent to both [facility] and [facility]. Discussed w/Dr Davila and RN. Date Signed: 02/07/2018 02:11 PM Electronically Signed By:Shira Tirado RN Case Management Discharge Plan Note Case Management Discharge Discharge Order Complete? Answers: Yes Patient to Obtain Answers: Other Notes: [facility] Medications Transportation Arranged Answers: Family/Friends Faxed Final Orders Answers: Yes Agency/Facility Transfer Answers: Yes Report Printed & Faxed to Receiving Agency Family Notified Answers: Yes Notes: daughter present Discharge Comments Notes: Pt will dc back to her [facility] where she resides ([facility]) and will be followed by [facility]. Daughter will transport her home. Discussed dc plan at length w/Dtr Dee Dee who is very involved and supportive. Pt does have dementia. Orders/info sent through [facility] to both [facility] and [facility]. Physician plan of care filled out by Dr Davila and faxed to Emma at [facility]. She is ready to accept pt back and said they will be able to provide frequent checks on pt. Date Signed: 02/07/2018 02:17 PM Electronically Signed By:Shira Tirado RN Intervention Information Intervention Type:*VICKERS-Signed Date of Service:02/06/2018 10:32 AM Patient Type:Observation Staff Member:Lashanda Felton Hours: Discipline: Severity: Comment:
== END 2018-02-07 14:08 | disposition home health service (06) | DRG 189 ==
LOC: OBSVTOIN 22:22 → F3E 23:58
PROVIDERS: ADMIT Student in an Organized Health Care Education/Training Program; ATTEND Student in an Organized Health Care Education/Training Program
DX: J96.01 Acute respiratory failure with hypoxia (principal); J45.901 Unspecified asthma with (acute) exacerbation; J44.1 Chronic obstructive pulmonary disease with (acute) exacerbation; F03.90 Unspecified dementia, unspecified severity, without behavioral disturbance, psychotic disturbance, mood disturbance, and anxiety; J10.1 Influenza due to other identified influenza virus with other respiratory manifestations; I10 Essential (primary) hypertension; Z80.42 Family history of malignant neoplasm of prostate
CPT/HCPCS: 97162-GP; 97166-GO; G0378; G8978-GP-CI; G8979-GP-CI; G8980-GP-CI; G8987-GO-CJ; G8988-GO-CJ; G8989-GO-CJ; J1650; J7512

== ENCOUNTER → 2018-02-13 | Outpatient (CLI) | payer OTHER | LOC: SUPIMAGING 15:07 | PROVIDERS: ATTEND Nurse Practitioner Family | DX: I51.7 Cardiomegaly (principal) | CPT/HCPCS: 71046-PN ==